=== PATIENT | male | born 1970 | race Caucasian/White ===

== ENCOUNTER 2021-07-15 11:59 | Emergency (ER) | payer MEDICAID ==
[~2021-07-15] VITALS: Ht 180.3 cm; Wt 108.9 kg
[2021-07-15] MEDS ORDERED: CLINDAMYCIN PHOSPHATE IV 600 MG in IV DEXTROSE 5% 100 ML IV ONE (12:15)
[2021-07-15] MEDS ORDERED: MORPHINE SULFATE 4 MG/1 ML DISP.SYRIN IV ONE (12:15)
[2021-07-15] MEDS ORDERED: ONDANSETRON 4 MG/2 ML VIAL IV ONE (12:15)
[2021-07-15] MEDS ORDERED: IV NORMAL SALINE 1000 ML BAG IV ONE (12:15)
[2021-07-15] MEDS ORDERED: IOHEXOL 350 100 ML INFUS..BTL ONE (12:25)
--- NOTE | 2021-07-15 12:25 | NUR ---
PT IS IN ROOM #1A. DR LA EVALUATED THE PT.
[2021-07-15] MEDS ORDERED: SWABABLE VALVE TRANSFER SET EA MC ONE (12:26)
[2021-07-15] MEDS ORDERED: IV NORMAL SALINE 250 ML IV ONE (12:26)
[2021-07-15] MEDS ORDERED: CLINDAMYCIN PHOSPHATE 600 MG/4 ML VIAL ONE (12:30)
[2021-07-15] MEDS ORDERED: MORPHINE SULFATE 4 MG/1 ML DISP.SYRIN ONE (12:30)
[2021-07-15] MEDS ORDERED: ONDANSETRON 4 MG/2 ML VIAL ONE (12:31)
[2021-07-15 12:37] LABS: MEAN CORPUSCULAR HEMOGLOBIN 33.9 uug (23.8-33.4); MEAN CORPUSCULAR VOLUME 96.7 fL (73.0-96.2); PLATELET COUNT (AUTO) 229 K/uL (152-348)
[2021-07-15 12:39] LABS: CARBON DIOXIDE 26 mmol/L (21-32); CHLORIDE 100 mmol/L (98-107); CREATININE 1.6 mg/dL (0.6-1.3); GLUCOSE 111 mg/dL (74-106); POTASSIUM 4.2 mmol/L (3.5-5.1); UREA NITROGEN, BLOOD 18 mg/dL (7-18)
[2021-07-15 12:48] LABS: ALANINE AMINOTRANSFERASE 76 U/L (16-63); ALKALINE PHOSPHATASE 97 U/L (50-136); ASPARTATE AMINOTRANSFERASE 33 U/L (15-37); BILIRUBIN,DIRECT 0.1 mg/dL (0.0-0.2); BILIRUBIN,TOTAL 0.3 mg/dL (0.2-1.0); TOTAL PROTEIN, SERUM 9.1 g/dL (6.4-8.2)
[2021-07-15] MEDS ORDERED: HYDR-3972 PO (13:44)
[2021-07-15] MEDS ORDERED: IBUP-1955 PO (13:44)
[2021-07-15] MEDS ORDERED: CLIN300C12 PO (13:44)
--- NOTE | 2021-07-15 14:00 | NUR ---
PT WAS D/Cd TO HOME. D/C INSTRUCTIONS GIVEN TO THE PT BY DR LA.
[2021-07-15 14:01] VITALS: BP 140/72
== END 2021-07-15 14:02 | disposition home or self-care (01) ==
LOC: ER 11:59
DX: K05.6 Periodontal disease, unspecified (principal); J01.80 Other acute sinusitis; J32.9 Chronic sinusitis, unspecified; R22.0 Localized swelling, mass and lump, head; G89.29 Other chronic pain; M54.2 Cervicalgia; D72.829 Elevated white blood cell count, unspecified; R03.0 Elevated blood-pressure reading, without diagnosis of hypertension
CPT/HCPCS: 70487; 71045; 80048; 80076; 83605; 84145; 84484; 85025; 85730; 87040 ×2; 96365; 96375; 99285; J2270; J2405; J3490; J7060; Q9967; 36415; A4663; J7040